=== PATIENT | male | born 1990 | race Caucasian/White ===

== ENCOUNTER 2019-03-25 16:39 | Emergency (ER) | payer SELFPAY ==
[~2019-03-25] VITALS: Ht 182.9 cm; Wt 113.0 kg
[2019-03-25] MEDS ORDERED: MORPHINE SULFATE 10 MG/ML CPJ IM ONE ×2 (17:30→21:15)
[2019-03-25] MEDS ORDERED: ONDANSETRON 4MG ODT PO ONE (17:30)
[2019-03-25] MEDS ORDERED: LIDOCAINE HCL/PF 1% 10 MG/ML 5ML VIAL IJ ONE (18:00)
[2019-03-25] MEDS ORDERED: BACITRACIN ZINC OINT UDPKT TOP ONE (18:00)
[2019-03-25] MEDS ORDERED: ACETAMINOPHEN 325MG TABLET PO ONE (19:15)
[2019-03-26 00:09] VITALS: BP 128/81
== END 2019-03-26 00:15 | disposition home or self-care (01) ==
LOC: ER 16:49
DX: S80.02XA Contusion of left knee, initial encounter (principal); S80.01XA Contusion of right knee, initial encounter; S01.111A Laceration without foreign body of right eyelid and periocular area, initial encounter; W14.XXXA Fall from tree, initial encounter; Y93.H2 Activity, gardening and landscaping; Y92.89 Other specified places as the place of occurrence of the external cause; Y99.0 Civilian activity done for income or pay
CPT/HCPCS: 12011; 70450; 70486; 71045; 73562; 73700; 96372; 99284; J2270; J3490; L1830; Q0162; Z7610